=== PATIENT | female | born 1950 | race African-American/Black ===

== ENCOUNTER 2021-05-13 11:48 | Outpatient (REF) | payer MEDICARE, SELFPAY ==
[2021-05-13 13:53] LABS: Hematocrit 39.8 % (37.0-47.0); Hemoglobin 12.8 g/dl (12.0-16.0); Mean Corpuscular HGB Conc 32.2 g/dl (31.0-35.0); Mean Corpuscular Hemoglobin 27.2 pg (27.0-33.0); Mean Corpuscular Volume 84.5 fL (80.0-98.0); Mean Platelet Volume 10.4 fL (9.4-12.3); Platelet Count 191 X10*3/uL (160-400); Red Blood Count 4.71 X10*6/uL (4.20-5.50); Red Cell Distribution Width 13.4 % (11.0-16.0); White Blood Count 5.9 X10*3/uL (4.8-10.8)
[2021-05-13 14:08] LABS: Estimated Average Glucose 120 mg/dL; Hemoglobin A1c % 5.8 %
[2021-05-13 14:15] LABS: Alanine Aminotransferase 13 U/L (0-31); Albumin Level 4.1 g/dL (3.5-5.0); Alkaline Phosphatase 91 U/L (39-117); Anion Gap 10 (12-20); Aspartate Amino Transferase 28 U/L (5-31); Bilirubin Total 0.7 mg/dL (0.0-1.0); Blood Urea Nitrogen 15 mg/dL (9-16); Calcium 10.3 mg/dL (8.4-10.2); Carbon Dioxide 29 mmol/L (22-29); Chloride 104 mmol/L (96-108); Cholesterol 223 mg/dL; Estimated Glomerular Filt Rate > 60; Glucose Fasting 106 mg/dL (60-99); HDL Cholesterol 50 mg/dL; LDL Cholesterol Calculated 154 mg/dl; Potassium 3.9 mmol/L (3.3-5.1); Sodium 139 mmol/L (135-145); Total Protein 7.6 g/dL (6.5-8.0); Triglycerides 95 mg/dL
[2021-05-13 14:19] LABS: Creatinine Urine 46.65 mg/dL; Microalbumin Urine < 5.0 mg/L
[2021-05-13 14:24] LABS: TSH reflex Free T4 1.45 uIU/mL (0.32-4.0)
== END 2021-05-13 11:49 | disposition home or self-care (01) ==
LOC: HO.HMGCLDS 11:48
PROVIDERS: Visit Provider Physician Assistant
DX: I10 Essential (primary) hypertension (principal); Z13.1 Encounter for screening for diabetes mellitus; Z13.29 Encounter for screening for other suspected endocrine disorder
CPT/HCPCS: 36415; 80053; 80061; 82043; 83036; 84443; 85027

== ENCOUNTER 2021-09-20 15:33 | Emergency (ER) | payer MEDICARE, SELFPAY ==
[2021-09-20 18:34] VITALS: BP 130/73; PULSE 93; RESP 18; TEMP 36.6; O2SAT 97; BMI 23.0
--- NOTE | 2021-09-21 01:25 | PC.NURSE ---
pt c/o bilat upper extrem stiffness and soreness. unable to lift arms over head x 2 weeks, also reports mid abd heaviness. and weakness with walking.
--- NOTE | 2021-09-21 01:34 | ED.GENADULT ---
HPI - General Adult General Chief complaint: General Medical Stated complaint: Multiple Complaints Time Seen by Provider: 09/21/21 00:12 Source: patient and family (, Anglican) Mode of arrival: ambulatory Limitations: no limitations History of Present Illness HPI narrative: 70-year-old female who presents emergency department for evaluation dizziness, weakness and pain. Patient states that she has been experiencing pain in her arms and legs as well as in her hips and waist area. She states that is been going on for approximately 2-3 weeks. She states that is gotten worse to the point where she is having difficulty raising her arms and lifting her leg secondary to pain and weakness. The patient describes the pain as a heaviness which is constant and is 8/10 at its worst. The patient told me that she was hospitalized at [facility] for 1 week and was released 4 days prior. She states that she had a test done today was told that she has polymyalgia rheumatica but has not been started on steroids. She states that her fingernail technician started her on aspirin, calcium and phosphate with no relief of her symptoms. The patient denied headache pain in her temporal area, neck pain, jaw claudication or jaw pain. She has not had a change in her vision. She denied fever or chills. Related Data Home Medications Medication Instructions Recorded Confirmed cetirizine 10 mg tablet (Zyrtec) 10 mg PO DAILY PRN 05/11/21 08/30/21 latanoprostene bunod 0.024 % eye 1 drp ophthalmic (eye) QPM 05/11/21 08/30/21 drops (Vyzulta) timolol maleate 0.5 % eye drops 1 drp ophthalmic (eye) DAILY 05/11/21 08/30/21 aspirin 325 mg tablet 325 mg PO DAILY 09/20/21 Previous Rx's Medication Instructions Recorded blood pressure test kit-large #1 ea 05/11/21 diphenhydramine HCl 25 mg tablet 25 mg PO BEDTIME 10 days #10 tabs 05/11/21 (Benadryl Allergy) hydrochlorothiazide 12.5 mg tablet 12.5 mg PO DAILY #90 tabs 05/11/21 triamcinolone acetonide 0.1 % 1 appl topical BID 30 days #80 05/11/21 topical cream grams atenolol 50 mg tablet 50 mg PO DAILY 90 days #90 tabs 05/16/21 diclofenac sodium 75 mg 75 mg PO BID 15 days #30 tabs 07/20/21 tablet,delayed release sertraline 25 mg tablet 25 mg PO DAILY 30 days #30 tabs 08/30/21 hydroxyzine HCl 10 mg tablet 10 mg PO ONCE 15 days #15 tabs 09/07/21 prednisone 5 mg tablet 15 mg PO DAILY 30 days #90 tabs 09/21/21 Allergies Allergy/AdvReac Type Severity Reaction Status Date / Time No Known Drug Allergies Allergy Unknown Unknown Verified 09/20/21 18:34 amlodipine AdvReac Anxiety Verified 09/20/21 18:34 Review of Systems Review of Systems: Yes all other systems are reviewed and are negative COUNT INCLUDES THE [facility] Past Medical History COUNT INCLUDES THE [facility] Narrative: Past medical history: Reviewed below. Patient was told yesterday that she has polymyalgia rheumatica by her fingernail technician. Past surgical history: Hysterectomy secondary to fibroids. Social history: She is . She denies tobacco use. She denies alcohol use. She denies drug use. Medical History Back pain Glaucoma Hip pain HTN, goal to be determined Surgical History H/O: hysterectomy Family History Family History Father Stroke (cerebrum) Mother Stroke (cerebrum) Sister Breast cancer, Onset Age: 59 Social History Social History Housing: House Alcohol intake: never Patient Tobacco Use Status: Never used Tobacco e-Cigarette/Vaping Use: Never Used Advance Directives: No Advance Directives Information Provided: Yes service: No Current occupational status: retired Current occupation: Care Director Rn. - [employer] Cognitive needs: No Hearing needs: No Vision needs: Yes Physical Exam ED Vital Signs: Vital Signs - 24 hr 09/20/21 18:34 Temperature 97.9 F Pulse Rate 93 Respiratory Rate 18 Blood Pressure 130/73 Pulse Oximetry 97 Oxygen Delivery Method Room Air BMI result Body Mass Index 23.0 Const General: cooperative and no acute distress Orientation/consciousness: oriented to person and oriented to place Limitations: no limitations HENMT Head: Yes normal to inspection, Yes normocephalic and Yes atraumatic Ears: external ears normal General nose exam: Normal external nose present Face and sinus: Yes normal facial exam Mouth: Normal oral and palatal mucosa present Throat: Yes posterior oropharynx normal Eyes General: appearance normal, both eyes and all related structures Pupils: Equal, round and reactive pupils present Neck Neck: Yes normal visual inspection, Yes no lymphadenopathy, Yes trachea midline and Yes supple Chest Chest palpation & inspection: normal inspection of the chest and normal palpation of entire chest wall Resp Effort & Inspection: normal respiratory effort and able to speak in complete sentences Auscultation: clear to auscultation bilaterally Cardio Rate: regular rate Rhythm: regular rhythm Heart sounds: S1 normal heart sound present, S2 normal heart sound present and no murmurs GI Inspection: Yes normal to inspection Palpation (GI): Soft to palpation, nontender and no guarding Auscultation: normal bowel sounds General: Yes no CVA tenderness Back/Spine/Pelvis Back: no CVA tenderness Skin General skin exam: no rashes or lesions noted Neuro General: oriented to person and oriented to place Cranial nerves: Yes CN's II-XII intact bilaterally and Yes Equal, round and reactive pupils present Cognition (Neuro): normal cognition Extrem Other: Patient does have tenderness with palpation of both her upper and lower extremities, she does have difficulty lifting her arm secondary to pain and weakness as well as difficulty lifting her leg secondary to pain and weakness. She is able to walk without any difficulty. Psych Appearance: grossly normal Speech and movement: Normal speech and movement present Affect: normal affect Attitude: cooperative Thought process: Normal thought process present Thought content: Normal thought content present Course Course Course Narrative: 70-year-old female who presents emergency department for evaluation of pain and weakness in her upper and lower extremities as well as in her waist area x2 weeks. Patient was recently hospitalized at [facility] least 4 days prior. She was told yesterday that she has polymyalgia rheumatica but has not been started on steroids yet. The patient does not have any symptoms consistent with giant cell arteritis. The patient's exam is consistent with PMR. Patient was given prednisone 15 mg orally. She was started on prednisone 15 mg orally and given a 2 week supply. I told her that sometimes this medication use to be increased in order to control her pain and she will need to work with the fingernail technician to determine the dose that she is be on and the duration of the dose. She was given verbal and printed instructions and discharged home Discharge Plan Discharge Clinical Impression: Polymyalgia rheumatica Patient Disposition: Home, Self-Care Instructions: Polymyalgia Rheumatica (ED) Additional Instructions: Your pain in weakness is consistent with polymyalgia rheumatica which is inflammation of your muscles in your joints. Take prednisone 5 mg pills, 3 pills once a day. While you are taking prednisone, do not take any NSAIDs (Motrin, Advil, ibuprofen, Aleve, naproxen, aspirin). Stop taking aspirin and discuss this with your fingernail technician. You will need to be on prednisone for 4-6 weeks and sometimes longer. You will need to work with your fingernail technician to determine how long you need to be on prednisone and sometimes the dose needs to be increased at help treat your pain. You should not stop prednisone unless your doctor advise you to do so. Sometimes polymyalgia rheumatica associated with inflammation of the arteries of your face, neck and jaw, often the symptoms involve jaw pain, difficulty chewing, change in your vision and headaches. This is called giant cell arteritis (GAC). If you get these symptoms it is important to talk to fingernail technician immediately and the treatment is usually to increase the dose of prednisone. Follow-up with your doctor in 2 days. Please return to the emergency department if your symptoms get worse or if you develop any symptoms that are concerning to you. Prescriptions: New prednisone 5 mg tablet 15 mg PO DAILY 30 Days Qty: 90 0RF No Action diclofenac sodium 75 mg tablet,delayed release (DR/EC) 75 mg PO BID 15 Days Qty: 30 3RF hydroxyzine HCl 10 mg tablet 10 mg PO ONCE 15 Days Qty: 15 0RF sertraline 25 mg tablet 25 mg PO DAILY 30 Days Qty: 30 1RF Vyzulta 0.024 % drops 1 drp ophthalmic (eye) QPM cetirizine [Zyrtec] 10 mg tablet 10 mg PO DAILY PRN timolol maleate 0.5 % drops 1 drp ophthalmic (eye) DAILY (DME) blood pressure test kit-large Kit See Rx Instructions .Route Qty: 1 0RF Rx Instructions: As directed hydrochlorothiazide 12.5 mg tablet 12.5 mg PO DAILY Qty: 90 1RF diphenhydramine HCl [Benadryl Allergy] 25 mg tablet 25 mg PO BEDTIME 10 Days Qty: 10 0RF triamcinolone acetonide 0.1 % cream 1 appl topical BID 30 Days Qty: 80 1RF atenolol 50 mg tablet 50 mg PO DAILY 90 Days Qty: 90 1RF aspirin 325 mg tablet 325 mg PO DAILY
[2021-09-21] MEDS: predniSONE 5 MG TABLET 15 MG PO (02:07)
== END 2021-09-21 02:26 | disposition home or self-care (01) ==
PROVIDERS: Emergency Provider Emergency Medicine Emergency Medical Services; PCP Physician Assistant
DX: M35.3 Polymyalgia rheumatica (principal); R42 Dizziness and giddiness; I10 Essential (primary) hypertension
CPT/HCPCS: 99283

== ENCOUNTER 2021-10-05 10:32 | Outpatient (REF) | payer MEDICARE, SELFPAY ==
[2021-10-05 11:48] LABS: Hematocrit 37.4 % (37.0-47.0); Hemoglobin 11.5 g/dl (12.0-16.0); Mean Corpuscular HGB Conc 30.7 g/dl (31.0-35.0); Mean Corpuscular Hemoglobin 25.9 pg (27.0-33.0); Mean Corpuscular Volume 84.2 fL (80.0-98.0); Mean Platelet Volume 10.3 fL (9.4-12.3); Platelet Count 287 X10*3/uL (160-400); Red Blood Count 4.44 X10*6/uL (4.20-5.50); Red Cell Distribution Width 14.6 % (11.0-16.0); White Blood Count 11.5 X10*3/uL (4.8-10.8)
[2021-10-05 11:53] LABS: Estimated Average Glucose 117 mg/dL; Hemoglobin A1c % 5.7 %
[2021-10-05 12:20] LABS: Alanine Aminotransferase 100 U/L (0-31); Albumin Level 3.7 g/dL (3.5-5.0); Alkaline Phosphatase 69 U/L (39-117); Anion Gap 15 (12-20); Aspartate Amino Transferase 313 U/L (5-31); Bilirubin Direct 0.3 mg/dL (0.0-0.5); Bilirubin Total 0.7 mg/dL (0.0-1.0); Blood Urea Nitrogen 11 mg/dL (9-16); C Reactive Protein 1.12 mg/dL (< or = 0.50); Carbon Dioxide 28 mmol/L (22-29); Chloride 97 mmol/L (96-108); Cholesterol 229 mg/dL; Estimated Glomerular Filt Rate > 60; Glucose Fasting 108 mg/dL (60-99); HDL Cholesterol 44 mg/dL; LDL Cholesterol Calculated 148 mg/dl; Sodium 136 mmol/L (135-145); Total Protein 7.5 g/dL (6.5-8.0); Triglycerides 189 mg/dL
[2021-10-05 12:33] LABS: Erythrocyte Sedimentation Rate 23 MM/HR (0-20)
== END 2021-10-05 10:33 | disposition home or self-care (01) ==
LOC: HO.LAB 10:32
PROVIDERS: PCP Physician Assistant; Visit Provider Physician Assistant
DX: E78.9 Disorder of lipoprotein metabolism, unspecified (principal); I10 Essential (primary) hypertension; M35.3 Polymyalgia rheumatica; R73.01 Impaired fasting glucose
CPT/HCPCS: 36415; 80053; 80061; 80076; 82248; 83036; 85027; 85652; 86140

== ENCOUNTER 2021-10-13 14:53 | Outpatient (REF) | payer MEDICARE, SELFPAY ==
--- NOTE | ~2021-10-13 | XR_ITS ---
EXAMINATION: XR LUMBOSACRAL SPINE CLINICAL INFORMATION: Low back pain. COMPARISON: None TECHNIQUE: Three views of the lumbosacral spine. FINDINGS: There are 5 nonrib-bearing lumbar vertebrae. No acute fracture is appreciated. There is multilevel degenerative spurring seen throughout the lower thoracic and lumbar spine. There is a grade 1 spondylolisthesis at the L5-S1 level. There is narrowing of the L5-S1 disc space. There is bilateral facet arthropathy present L4 to S1. Sacroiliac joints appear unremarkable. Sclerotic density overlying the left iliac bone likely represents a bone island. XR/XR lumbar spine 2-3V IMPRESSION: Lumbar spondylosis as described without evidence of acute fracture or destructive bony lesion.
[2021-10-13 17:22] LABS: Alanine Aminotransferase 95 U/L (0-31); Albumin Level 3.7 g/dL (3.5-5.0); Alkaline Phosphatase 69 U/L (39-117); Anion Gap 14 (12-20); Aspartate Amino Transferase 316 U/L (5-31); Bilirubin Direct 0.2 mg/dL (0.0-0.5); Bilirubin Total 0.5 mg/dL (0.0-1.0); Blood Urea Nitrogen 9 mg/dL (9-16); Calcium 9.9 mg/dL (8.4-10.2); Carbon Dioxide 29 mmol/L (22-29); Chloride 98 mmol/L (96-108); Estimated Glomerular Filt Rate > 60; Glucose Random 107 mg/dL (60-115); Potassium 4.4 mmol/L (3.3-5.1); Sodium 137 mmol/L (135-145); Total Protein 7.2 g/dL (6.5-8.0)
[2021-10-14 04:52] LABS: HBc Num1 0.08 S/CO (0.00-0.79); HBsAGNum1 0.17 S/CO (0.00-0.99); Hepatitis B Core Antibody Nonreactive (Nonreactive); Hepatitis B Surface Antigen Negative (Negative); ~HepC Num1 0.49 S/CO (0.00-0.79); ~Hepatitis B Surface Antibody REACTIVE (Nonreactive); ~Hepatitis C Antibody Nonreactive (Nonreactive)
== END 2021-10-13 14:54 | disposition home or self-care (01) ==
LOC: HO.HMGCX 14:53
PROVIDERS: PCP Physician Assistant; Visit Provider Physician Assistant
DX: M54.50 Low back pain, unspecified (principal); R74.8 Abnormal levels of other serum enzymes; I10 Essential (primary) hypertension; Z11.3 Encounter for screening for infections with a predominantly sexual mode of transmission
CPT/HCPCS: 36415; 72100; 80048; 80076; 86704; 86706; 86803; 87340

== ENCOUNTER 2021-10-19 14:33 | Outpatient (REF) | payer MEDICARE, SELFPAY ==
[2021-10-19 15:54] LABS: INTERNATIONAL NORM RATIO 0.9 (0.9-1.1); Prothrombin Time 10.2 SEC (10.0-13.1)
[2021-10-19 16:11] LABS: Iron 42 mcg/dL (30-160); Percent Iron Saturation 16 % (15-50); Total Iron Binding Capacity 264 mcg/dL (228-428); Unsaturated Iron Binding 222 ug/dL
[2021-10-21 05:17] LABS: Hepatitis A Antibody IgG REACTIVE (Nonreactive); ~Hepatitis A Antibody IgG 6.11 S/CO (0.00-0.99)
[2021-10-21 14:31] LABS: Alpha 1 Anti-trypsin 203 mg/dL (83-199); Ceruloplasmin 32 mg/dL (18-53)
[2021-10-21 14:46] LABS: Immunoglobulin A 345 mg/dL (70-320); Immunoglobulin G 1930 mg/dL (600-1540)
[2021-10-23 23:41] LABS: Liver Kidney Microsomal Ab <=20.0 U (<=20.0)
[2021-10-24 07:37] LABS: Transglutaminase IgA <1.0 U/mL
[2021-10-24 13:16] LABS: Smooth Muscle Antibody <20 U (<20)
[2021-10-26 22:07] LABS: Anti Nuclear Antibody Screen POSITIVE (NEGATIVE); Anti Nuclear Antibody Titer > OR = 1:1280 titer
== END 2021-10-19 14:34 | disposition home or self-care (01) ==
LOC: HO.LAB 14:33
PROVIDERS: PCP Physician Assistant; Visit Provider Internal Medicine
DX: R74.8 Abnormal levels of other serum enzymes (principal); R13.12 Dysphagia, oropharyngeal phase; D84.9 Immunodeficiency, unspecified; R63.4 Abnormal weight loss; R79.89 Other specified abnormal findings of blood chemistry
CPT/HCPCS: 36415; 82103; 82390; 82784; 83540; 85610; 86015; 86038; 86039; 86364; 86376; 86708; 86790; 87177; 87209; 99202

== ENCOUNTER 2021-10-20 08:11 | Outpatient (REF) | payer MEDICARE, SELFPAY | END 2021-10-20 08:12 | disposition home or self-care (01) | LOC: HO.XRAY 08:11 | PROVIDERS: PCP Internal Medicine; Visit Provider Internal Medicine | DX: Z13.89 Encounter for screening for other disorder (principal) ==

== ENCOUNTER 2021-10-21 09:39 | Outpatient (REF) | payer MEDICARE, SELFPAY ==
--- NOTE | ~2021-10-21 | US_ITS ---
EXAMINATION: US ABDOMEN COMPLETE US DUPLEX ARTERIAL VENOUS DOPPLER ABDOMEN CLINICAL INFORMATION: Abnormal blood chemistry (abnormal levels of serum enzymes). COMPARISON: None TECHNIQUE: Real-time imaging of the abdominal viscera. Also, duplex Doppler imaging with spectral waveform analysis of splenic, portal and hepatic veins, and hepatic artery. FINDINGS: PANCREAS: Normal. ABDOMINAL AORTA: The proximal, mid, and distal segments are normal in caliber. INFERIOR VENA CAVA: Normal. LIVER: Liver has normal size and contour. No cirrhotic morphology. Liver parenchyma appears to be mildly hyperechoic (image 39/112). No focal liver lesion or intrahepatic bile duct dilatation. GALLBLADDER: The gallbladder is underdistended. Distal acoustic shadowing caused by a structure of the gallbladder fundus. This appears to represent a fundal calculus that measures approximately 2 cm. No gallbladder wall thickening or pericholecystic fluid. COMMON BILE DUCT: Common duct is < 0.8 cm (measures up to a maximum of 7.8 mm AP diameter) and shows normal distal tapering. RIGHT KIDNEY: Normal. No hydronephrosis. No renal calculi or focal parenchymal lesions. The kidney measures 11 cm in maximum dimension. LEFT KIDNEY: Normal. No hydronephrosis. No renal calculi or focal parenchymal lesions. The kidney measures 11.4 cm in maximum dimension. SPLEEN: Normal. The spleen measures 8.1 cm in maximum dimension. FREE FLUID: None. DOPPLER IMAGING: The examined vessels have normal waveforms. There is hepatopedal flow within the portal veins. Normal flow is detected within the hepatic arteries. The proper hepatic artery has a peak systolic velocity of 114 cm/sec. The splenic and hepatic veins are patent. No venous thrombosis. US/US duplex arterial venous comp IMPRESSION: * Liver parenchyma is mildly hyperechoic. Although nonspecific, this could be a manifestation of mild steatosis. No focal liver lesion or intrahepatic ductal dilatation. * There appears to be a shadowing stone occupying the gallbladder fundus. Otherwise, gallbladder is unremarkable. No evidence of cholecystitis. * The hepatic and portal vessels are normal.
== END 2021-10-21 09:40 | disposition home or self-care (01) ==
LOC: HO.US 09:39
PROVIDERS: Absent Provider Internal Medicine; Visit Provider Internal Medicine
DX: R74.8 Abnormal levels of other serum enzymes (principal)
CPT/HCPCS: 76700; 93975

== ENCOUNTER 2021-11-02 10:19 | Outpatient (REF) | payer MEDICARE, SELFPAY ==
--- NOTE | ~2021-11-02 | FL_ITS ---
EXAMINATION: FL BARIUM SWALLOW CLINICAL INFORMATION: Dysphagia. COMPARISON: None. TECHNIQUE: Barium swallow was performed using thick barium only. The exam was not completed due to laryngeal penetration and trace aspiration. No additional barium was administered. Follow-up overhead images of the chest and upper abdomen were performed. Fluoroscopy time: 0.6 minutes. DAP: 0.6 Gycm2. Images: 48 fluoroscopic images plus 4 overhead images. FINDINGS: There is laryngeal penetration and trace aspiration with thick liquid barium. Limited images of the esophagus, stomach and duodenum are unremarkable. FL/FL barium swallow IMPRESSION: Laryngeal penetration and trace aspiration. Barium swallow was not completed. Findings will be communicated by the [place] work flow personnel interviewer.
== END 2021-11-02 10:20 | disposition home or self-care (01) ==
LOC: HO.XRAY 10:19
PROVIDERS: PCP Internal Medicine; Visit Provider Internal Medicine
DX: R13.10 Dysphagia, unspecified (principal)
CPT/HCPCS: 74220

== ENCOUNTER 2021-11-16 12:39 | Outpatient (REF) | payer MEDICARE, SELFPAY ==
[2021-11-16 15:12] LABS: MANUAL DIFF FLAG NO
[2021-11-16 15:34] LABS: Basophils Percent Auto 0.1 % (0-2); Eosinophils Percent Auto 0.1 % (0-4); Hematocrit 39.9 % (37.0-47.0); Hemoglobin 12.8 g/dl (12.0-16.0); Imm Gran Abs Auto 0.03 X10*3/uL (0.00-0.03); Imm Gran Pct Auto 0.3 % (0.0-0.4); Lymphocytes Absolute Auto 0.7 X10*3/uL (1.2-4.9); Lymphocytes Percent Auto 7.1 % (20-40); Mean Corpuscular HGB Conc 32.1 g/dl (31.0-35.0); Mean Corpuscular Hemoglobin 26.4 pg (27.0-33.0); Mean Corpuscular Volume 82.3 fL (80.0-98.0); Mean Platelet Volume 10.8 fL (9.4-12.3); Monocytes Absolute Auto 0.4 X10*3/uL (0.1-1.2); Monocytes Percent Auto 4.1 % (2-11); Neutrophils Absolute Auto 8.6 x10*3/uL (2.0-8.3); Neutrophils Percent Auto 88.3 % (45-73); Platelet Count 201 X10*3/uL (160-400); Red Blood Count 4.85 X10*6/uL (4.20-5.50); Red Cell Distribution Width 14.9 % (11.0-16.0); White Blood Count 9.7 X10*3/uL (4.8-10.8)
[2021-11-16 16:02] LABS: Gamma Glutamyl Transpeptidase 21 U/L (7-33)
[2021-11-16 16:09] LABS: Erythrocyte Sedimentation Rate 13 MM/HR (0-20)
[2021-11-16 16:14] LABS: Alanine Aminotransferase 61 U/L (0-31); Alkaline Phosphatase 62 U/L (39-117); Anion Gap 16 (12-20); Aspartate Amino Transferase 152 U/L (5-31); Bilirubin Total 0.9 mg/dL (0.0-1.0); Blood Urea Nitrogen 10 mg/dL (9-16); C Reactive Protein 0.76 mg/dL (< or = 0.50); Calcium 10.5 mg/dL (8.4-10.2); Carbon Dioxide 30 mmol/L (22-29); Chloride 92 mmol/L (96-108); Estimated Glomerular Filt Rate > 60; Glucose Random 121 mg/dL (60-115); Lactate Dehydrogenase 734 U/L (122-220); Potassium 3.6 mmol/L (3.3-5.1); Sodium 134 mmol/L (135-145); Total Protein 7.8 g/dL (6.5-8.0)
[2021-11-16 16:29] LABS: Thyroid Stimulating Hormone 0.93 uIU/mL (0.32-4.0)
[2021-11-17 08:30] LABS: HIV AB/AG Nonreactive (Nonreactive); HIV Num 1 0.07 S/CO (0.00-0.99)
[2021-11-17 16:06] LABS: Complement C3 117 mg/dL (83-193)
[2021-11-19 00:08] LABS: TS Negative Control Passed; TS Panel A 0; TS Panel B 0; TS Positive Control Passed; TSpotTB Negative (Negative)
[2021-11-19 23:11] LABS: Prot Elec - Albumin 3.9 g/dL (3.8-4.8); Prot Elec - Alpha1 0.3 g/dL (0.2-0.3); Prot Elec - Alpha2 0.7 g/dL (0.5-0.9); Prot Elec - Beta 1 0.4 g/dL (0.4-0.6); Prot Elec - Beta 2 0.5 g/dL (0.2-0.5); Prot Elec - Gamma 1.7 g/dL (0.8-1.7); Prot Elec - Total Protein 7.5 g/dL (6.1-8.1)
[2021-11-21 13:06] LABS: IgA 356 mg/dL (70-320); IgG 1984 mg/dL (600-1540); IgM 170 mg/dL (50-300)
[2021-11-21 14:06] LABS: Vitamin D 25-OH, D2 <4 ng/mL; Vitamin D 25-OH, D3 34 ng/mL; Vitamin D 25-OH, Total 34 ng/mL (30-100)
[2021-11-21 16:52] LABS: Anti DNA DS Antibody <1 IU/mL; Antibody to SS-A Antigen <1.0 NEG AI (<1.0 NEG); Antibody to SS-B Antigen <1.0 NEG AI (<1.0 NEG); SM/Ribonucleoprotein Ab <1.0 NEG AI (<1.0 NEG); Smith Protein <1.0 NEG AI (<1.0 NEG)
[2021-11-23 05:36] LABS: Aldolase 26.4 U/L (<=8.1)
[2021-12-02 08:29] LABS: Other Ref Test - Misc SEE COMMENTS
== END 2021-11-16 12:40 | disposition home or self-care (01) ==
LOC: HO.LAB 12:39
PROVIDERS: Student in an Organized Health Care Education/Training Program; PCP Internal Medicine; Visit Provider Internal Medicine
DX: Z11.7 Encounter for testing for latent tuberculosis infection (principal); Z11.59 Encounter for screening for other viral diseases; Z13.21 Encounter for screening for nutritional disorder; Z11.4 Encounter for screening for human immunodeficiency virus [HIV]; R13.12 Dysphagia, oropharyngeal phase; M60.9 Myositis, unspecified; R76.8 Other specified abnormal immunological findings in serum; D84.9 Immunodeficiency, unspecified; R63.4 Abnormal weight loss; R74.8 Abnormal levels of other serum enzymes; Z86.010 Personal history of colon polyps
CPT/HCPCS: 36415; 80053; 82085; 82306; 82550; 82784; 82977; 83516; 83520; 83615; 84165; 84182; 84443; 85025; 85652; 86140; 86160; 86225; 86235; 86334; 86481; 87389; 99212

== ENCOUNTER 2021-11-18 13:11 | Outpatient (RCR) | payer MEDICARE, SELFPAY | END 2021-12-13 08:29 | disposition home or self-care (01) | LOC: HO.PT 13:11 | PROVIDERS: PCP Internal Medicine; Visit Provider Physician Assistant | DX: M51.9 Unspecified thoracic, thoracolumbar and lumbosacral intervertebral disc disorder (principal) ==

== ENCOUNTER 2021-11-18 13:58 | Outpatient (REF) | payer MEDICARE, SELFPAY ==
[2021-11-18 14:20] LABS: Appearance Urine Clear; Color Urine Yellow; Glucose Urine UA Negative (Negative); Leukocyte Esterase Urine Moderate (2+) (Negative); Nitrite Urine Negative (Negative); PH 6.5 (5.0-9.0); Specific Gravity - Urine 1.015 (1.005-1.025); UMIC TRIGGER UA YES; Urine Blood Negative (Negative); Urine Ketones Trace mg/dL (Negative); Urine Protein Trace mg/dL (Neg-Trace)
[2021-11-18 14:23] LABS: Bacteria Urine None Seen (None Seen); Hyaline Casts Urine 0-2 /LPF (0-2); RBC Urine 0-2 /HPF (0-2); Squamous Epithelial Cell Urine 0-2 /HPF (0-2)
[2021-11-18 14:37] LABS: Protein/Creatinine Ratio, Ur 0.16 (<0.2); Total Protein Urine Random 16 mg/dL (<12)
== END 2021-11-18 13:59 | disposition home or self-care (01) ==
LOC: HO.LNP 13:58
PROVIDERS: Visit Provider Student in an Organized Health Care Education/Training Program
DX: R76.8 Other specified abnormal immunological findings in serum (principal)
CPT/HCPCS: 81001; 84156

== ENCOUNTER 2021-11-22 09:40 | Outpatient (REF) | payer MEDICARE, SELFPAY ==
[2021-11-22 09:55] LABS: MANUAL DIFF FLAG NO
[2021-11-22 10:08] LABS: Basophils Percent Auto 0.3 % (0-2); Eosinophils Percent Auto 0.2 % (0-4); Hematocrit 42.5 % (37.0-47.0); Hemoglobin 13.3 g/dl (12.0-16.0); Imm Gran Abs Auto 0.05 X10*3/uL (0.00-0.03); Imm Gran Pct Auto 0.5 % (0.0-0.4); Lymphocytes Absolute Auto 1.2 X10*3/uL (1.2-4.9); Lymphocytes Percent Auto 12.1 % (20-40); Mean Corpuscular HGB Conc 31.3 g/dl (31.0-35.0); Mean Corpuscular Hemoglobin 26.1 pg (27.0-33.0); Mean Corpuscular Volume 83.3 fL (80.0-98.0); Mean Platelet Volume 10.5 fL (9.4-12.3); Neutrophils Absolute Auto 7.7 x10*3/uL (2.0-8.3); Neutrophils Percent Auto 76.9 % (45-73); Platelet Count 218 X10*3/uL (160-400); Red Cell Distribution Width 15.1 % (11.0-16.0)
[2021-11-22 10:30] LABS: C Reactive Protein 0.19 mg/dL (< or = 0.50)
[2021-11-26 05:32] LABS: Angiotensin Converting Enzyme 29 U/L (9-67)
[2021-11-26 14:31] LABS: Vitamin D 25-OH, D2 <4 ng/mL; Vitamin D 25-OH, D3 29 ng/mL; Vitamin D 25-OH, Total 29 ng/mL (30-100)
[2021-11-26 17:32] LABS: VITAMIN D (1,25 OH) D3 27 pg/mL; Vit D (1,25-Dihydroxy) Total 27 pg/mL (18-72); Vitamin D (1,25 OH) D2 <8 pg/mL
== END 2021-11-22 09:41 | disposition home or self-care (01) ==
LOC: HO.LAB 09:40
PROVIDERS: PCP Physician Assistant; Visit Provider Student in an Organized Health Care Education/Training Program
DX: R13.12 Dysphagia, oropharyngeal phase (principal); M33.90 Dermatopolymyositis, unspecified, organ involvement unspecified; Z79.52 Long term (current) use of systemic steroids
CPT/HCPCS: 36415; 82164; 82306; 82652; 85025; 86140; 99202

== ENCOUNTER 2021-11-24 11:45 | Day surgery (SDC) | payer MEDICARE, SELFPAY ==
--- NOTE | 2021-11-23 10:19 | P.CONAN_ITS ---
Documented by User: Hortencia Lane NP 11/23/21 13:17 HPI - Anesthesia Eval Consult details Narrative: 71yo F for Upper Endoscopy and Colonoscopy Seen by Rheumatology 11/22/21. Muscle weakness. Dx of dermatomyositis. Started on high dose PO steroids (prednisone 60mg daily), planned IVIG. T/C with Dr De Jesus (Rheum). No specific rheum considerations preop. OK to proceed. 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) Screening for osteoporosis (Acute) Age-related osteoporosis without current pathological fracture (Acute) Special screening for malignant neoplasm (Acute) Dermatomyositis (Acute) Screening for viral disease (Acute) Encounter for screening for nutritional disorder (Acute) Encounter for testing for latent tuberculosis infection (Acute) Myositis (Acute) JO-ANN positive (Acute) Lumbar spine pain (Acute) Elevated liver enzymes (Acute) Elevated blood pressure reading (Acute) Fatigue (Acute) Impaired fasting blood sugar (Acute) Dysphagia (Acute) Polymyalgia rheumatica (Acute) Polymyositis (Acute) THADDEUS (generalized anxiety disorder) (Acute) Melasma (Acute) Bilateral hand pain (Acute) Annual physical exam (Acute) Borderline high cholesterol (Acute) Impaired glucose metabolism (Acute) Allergic reaction (Acute) Lumbar spine pain (Acute) Right hip pain (Acute) Allergic rhinitis (Acute) HTN (hypertension) (Acute) Screening for hypothyroidism (Acute) Screening for diabetes mellitus (DM) (Acute) Past Medical History Medical History Back pain Glaucoma Hip pain HTN, goal to be determined Screening for osteoporosis Family History Family History Father Stroke (cerebrum) Mother Stroke (cerebrum) Sister Breast cancer, Onset Age: 59 Surgical History Surgical History H/O: hysterectomy Hx of colonoscopy Social History Social History Housing: House Alcohol intake: never Patient Tobacco Use Status: Never used Tobacco e-Cigarette/Vaping Use: Never Used Are you DNR?: No Advance Directives: No Advance Directives Information Provided: Yes Nutrition Risks: No Nutritional Risk service: No Current occupational status: retired Current occupation: Record Tabulating Clerk. - [employer] Cognitive needs: No Hearing needs: No Vision needs: Yes Meds Allergies Allergy/AdvReac Type Severity Reaction Status Date / Time No Known Allergies Allergy Verified 11/24/21 12:11 Home Medications Medication Instructions Recorded Confirmed Last Taken Type latanoprostene bunod 0.024 % eye 1 drp ophthalmic (eye) QPM 05/11/21 11/22/21 Unknown History drops (Vyzulta) timolol maleate 0.5 % eye drops 1 drp ophthalmic (eye) DAILY 05/11/21 11/22/21 Unknown History Exam Exam Date and Time: November 23, 2021 1019 Pertinent Lab Results Pertinent Lab Results: Laboratory Tests 11/16/21 11/22/21 15:04 09:53 WBC 10.0 Hgb 13.3 Hct 42.5 Plt Count 218 Sodium 134 L Potassium 3.6 Chloride 92 L Carbon Dioxide 30 H BUN 10 Creatinine 0.55 Assessment and Plan Assessment Anesthesia Assessment: Chart Reviewed Documented by User: Ruby Delgado MD 11/24/21 12:14 PMFSH Past Medical History Medical History Back pain Glaucoma Hip pain HTN, goal to be determined Screening for osteoporosis Family History Family History Father Stroke (cerebrum) Mother Stroke (cerebrum) Sister Breast cancer, Onset Age: 59 Surgical History Surgical History H/O: hysterectomy Hx of colonoscopy History of Problems with Anesthesia: No Social History Social History Housing: House Alcohol intake: never Patient Tobacco Use Status: Never used Tobacco e-Cigarette/Vaping Use: Never Used Are you DNR?: No Advance Directives: No Advance Directives Information Provided: Yes Nutrition Risks: No Nutritional Risk service: No Current occupational status: retired Current occupation: Record Tabulating Clerk. - [employer] Cognitive needs: No Hearing needs: No Vision needs: Yes Meds Allergies Allergy/AdvReac Type Severity Reaction Status Date / Time No Known Allergies Allergy Verified 11/24/21 12:11 Home Medications Medication Instructions Recorded Confirmed Last Taken Type latanoprostene bunod 0.024 % eye 1 drp ophthalmic (eye) QPM 05/11/21 11/22/21 Unknown History drops (Vyzulta) timolol maleate 0.5 % eye drops 1 drp ophthalmic (eye) DAILY 05/11/21 11/22/21 Unknown History Exam Airway Mallampati Class: III TM Dist: >3cm Neck ROM: Limited Loose/Missing/Broken Teeth: No Heart: RRR Lungs: CTA Assessment and Plan Final Anesthetic Review History of Problems with Anesthesia: No NPO: Yes ASA Class: II Final Preanesthetic Review: Meds/Allgs Chart Reviewed, Consent Obtained/Reviewed and Anes Risks/Benef Reviewed Patient Risk: Low Procedure Risk: Intermediate Anesthetic Plan Anesthetic Plan: MAC: Disposition: Standard PACU
--- NOTE | 2021-11-24 12:06 | MHC.SHP ---
Pre-Procedural Eval Section A Date of Service: 11/24/21 The patient is an INPATIENT: No The History & Physical has been completed within 30 days and I have reviewed it.: Yes Section B Chief Complaint: Dysphagia, personal hx of polyps Allergies: Allergies Allergy/AdvReac Type Severity Reaction Status Date / Time No Known Allergies Allergy Verified 11/22/21 08:41 Plan Diagnosis/Plan: Unchanged I have reviewed the history and physical and performed a pertinent physical examination on my patient. No changes have occurred unless specified.
--- NOTE | 2021-11-24 12:07 | P.OP_ITS ---
Operative Note Operative Note Date of Service: 11/24/21 Narrative: Procedure: Esophagogastroduodenoscopy and colonoscopy Endoscopist: Bonita Llanos MD Indication: Dysphagia, personal hx of polyps Anesthesia Provider: Dr Ruby Delgado Anesthesia Type: MAC ?? EGD Procedure:?? The procedure, indications, preparation and potential complications were reviewed with the patient, who indicated understanding and gave written informed consent to proceed. A physical exam was performed. The endoscope was introduced through the mouth, and advanced to the second part of duodenum. The mucosa was carefully examined on slow withdrawal of the endoscope. The patient tolerated the procedure well. There were no immediate complications.? ? EGD Findings:? * Esophagus:? Normal mucosa noted in the entire esophagus. The Z line was at 42 cm. * Stomach:? Normal mucosa was noted in the stomach. Few gastric polyps were noted in the body and fundus. Cold forceps biopsies were taken from the largest one. * Duodenum:? Normal mucosa was noted in the whole of the examined duodenum. ? Colonoscopy Procedure: The patient was then turned for colonoscopy. A digital rectal exam was performed which was normal. The colonoscope was then inserted through the anus and advanced through the colon to the cecum at 75 cm,and terminal ileum. Mucosa was carefully examined under high definition white light as the instrument was slowly withdrawn in a retrograde panoramic fashion. Retroflexion was performed in ascending colon and rectum. The procedure was not difficult. There were no immediate obvious complications. The quality of the prep was BBPS: 3+3+3 = excellent Withdrawal time: 13 minutes. Limitations: No limitations. Colonoscopy Findings: Mucosa: Normal to cecum and terminal ileum. Protruding lesions: * Medium internal hemorrhoids without stigmata of recent bleeding. Impression: * Normal esophagus * Gastric polyps (biopsy) * Normal duodenum * Normal colon mucosa * Internal hemorrhoids ?? Recommendations:?? * Dysphagia is likely secondary to involvement of upper third of esophagus (striated muscles) due to polymyositis. * Follow biopsy results. Our office will call or send a letter with results within 7-10 days. * Avoid NSAIDs. * Repeat colonoscopy in 10 years if patient still in good health. Above has been reviewed with the patient. Educational hand outs were provided at discharge.
[2021-11-24 12:10] VITALS: BMI 19.1
[2021-11-24] MEDS: Lactated Ringers 1,000 ML 100 ML IVCONT (12:13)
[2021-11-24 12:15] VITALS: BP 171/91; PULSE 82; RESP 16; TEMP 36.6; O2SAT 99
--- NOTE | 2021-11-24 12:37 | PC.NURSE ---
Iv attempts x 2 by marissa gonzáles rn. Iv attempt and insertion by dr. antunez
[2021-11-24 13:20] VITALS: BP 109/48; PULSE 79; RESP 18; TEMP 36.1; O2SAT 100
[2021-11-24 13:35] VITALS: BP 142/61; PULSE 72; RESP 18; TEMP 36.1; O2SAT 100
[2021-11-24 13:50] VITALS: BP 151/62; PULSE 71; RESP 18; TEMP 36.1; O2SAT 100
== END 2021-11-24 14:22 | disposition home or self-care (01) ==
PROVIDERS: PCP Internal Medicine; Visit Provider Internal Medicine
PROC: (CPT 43239; principal; 2021-11-24 12:00)
DX: Z12.11 Encounter for screening for malignant neoplasm of colon (principal); Z86.010 Personal history of colon polyps; K59.00 Constipation, unspecified; K64.8 Other hemorrhoids; R13.12 Dysphagia, oropharyngeal phase; R74.8 Abnormal levels of other serum enzymes; R74.01 Elevation of levels of liver transaminase levels; R63.4 Abnormal weight loss; Z68.21 Body mass index [BMI] 21.0-21.9, adult; K21.9 Gastro-esophageal reflux disease without esophagitis; K31.7 Polyp of stomach and duodenum; M35.3 Polymyalgia rheumatica; R53.83 Other fatigue; D84.9 Immunodeficiency, unspecified; I10 Essential (primary) hypertension; H40.9 Unspecified glaucoma; Z88.8 Allergy status to other drugs, medicaments and biological substances
CPT/HCPCS: 43239; G0105; 88305; 88342

== ENCOUNTER → 2021-12-07 12:24 | Outpatient (BNVA) | payer MEDICARE, SELFPAY | PROVIDERS: PCP Internal Medicine; Referring Provider Internal Medicine; Visit Provider Internal Medicine | DX: R74.8 Abnormal levels of other serum enzymes (principal); R13.12 Dysphagia, oropharyngeal phase; R63.4 Abnormal weight loss; D84.9 Immunodeficiency, unspecified; Z86.010 Personal history of colon polyps | CPT/HCPCS: 99212 ==

== ENCOUNTER 2021-12-28 10:36 | Outpatient (REF) | payer MEDICARE, SELFPAY ==
[2021-12-28 10:54] LABS: MANUAL DIFF FLAG NO
[2021-12-28 12:11] LABS: Basophils Percent Auto 0.2 % (0-2); Hematocrit 45.7 % (37.0-47.0); Hemoglobin 14.6 g/dl (12.0-16.0); Imm Gran Abs Auto 0.14 X10*3/uL (0.00-0.03); Lymphocytes Absolute Auto 0.9 X10*3/uL (1.2-4.9); Lymphocytes Percent Auto 6.3 % (20-40); Mean Corpuscular HGB Conc 31.9 g/dl (31.0-35.0); Mean Corpuscular Hemoglobin 26.7 pg (27.0-33.0); Mean Corpuscular Volume 83.7 fL (80.0-98.0); Mean Platelet Volume 10.5 fL (9.4-12.3); Monocytes Absolute Auto 0.8 X10*3/uL (0.1-1.2); Monocytes Percent Auto 5.5 % (2-11); Neutrophils Absolute Auto 11.9 x10*3/uL (2.0-8.3); Platelet Count 219 X10*3/uL (160-400); Red Blood Count 5.46 X10*6/uL (4.20-5.50); Red Cell Distribution Width 17.2 % (11.0-16.0); White Blood Count 13.7 X10*3/uL (4.8-10.8)
[2021-12-28 12:43] LABS: Alanine Aminotransferase 22 U/L (0-31); Albumin Level 4.2 g/dL (3.5-5.0); Alkaline Phosphatase 81 U/L (39-117); Anion Gap 15 (12-20); Aspartate Amino Transferase 26 U/L (5-31); Blood Urea Nitrogen 15 mg/dL (9-16); C Reactive Protein 0.71 mg/dL (< or = 0.50); Calcium 10.5 mg/dL (8.4-10.2); Carbon Dioxide 32 mmol/L (22-29); Chloride 95 mmol/L (96-108); Estimated Glomerular Filt Rate > 60; Glucose Random 91 mg/dL (60-115); Lactate Dehydrogenase 361 U/L (122-220); Potassium 3.6 mmol/L (3.3-5.1); Sodium 138 mmol/L (135-145); Total Protein 7.6 g/dL (6.5-8.0)
[2021-12-28 12:48] LABS: Erythrocyte Sedimentation Rate 7 MM/HR (0-20)
[2022-01-03 04:22] LABS: Aldolase 8.3 U/L (<=8.1)
== END 2021-12-28 10:37 | disposition home or self-care (01) ==
LOC: HO.MDS 10:36
PROVIDERS: PCP Physician Assistant; Visit Provider Student in an Organized Health Care Education/Training Program
DX: M33.90 Dermatopolymyositis, unspecified, organ involvement unspecified (principal)
CPT/HCPCS: 36415; 80053; 82085; 82550; 83615; 85025; 85652; 86140; 96365; 96366; 96375; J1200; J1561

== ENCOUNTER 2021-12-29 11:35 | Outpatient (REF) | payer MEDICARE, SELFPAY | END 2021-12-29 11:36 | disposition home or self-care (01) | LOC: HO.MDS 11:35 | PROVIDERS: PCP Physician Assistant; Visit Provider Student in an Organized Health Care Education/Training Program | DX: M33.90 Dermatopolymyositis, unspecified, organ involvement unspecified (principal) | CPT/HCPCS: 96360; 96365; 96366; 96375; J1200; J1561 ==

== ENCOUNTER 2021-12-30 | Outpatient (REF) | payer MEDICARE, SELFPAY | END 2021-12-30 00:01 | disposition home or self-care (01) | LOC: CF | PROVIDERS: Visit Provider Student in an Organized Health Care Education/Training Program | DX: M33.90 Dermatopolymyositis, unspecified, organ involvement unspecified (principal); R13.12 Dysphagia, oropharyngeal phase; Z79.52 Long term (current) use of systemic steroids | CPT/HCPCS: 99212 ==